=== PATIENT | female | born 1945 | race Caucasian/White ===

== ENCOUNTER 2024-01-28 08:33 | Outpatient (OUT) | payer MEDICARE, OTHER, SELFPAY ==
[2024-01-28 09:06] LABS: Basophils Percent Auto 0.4 % (0.2-2.0); Eosinophils Absolute Auto 0.1 10^3/uL (0.0-0.7); Eosinophils Percent Auto 1.3 % (0.9-7.0); Hematocrit 40.1 % (36.0-48.0); Hemoglobin 12.5 g/dL (12.0-16.0); Immature Granulocytes Abs Auto 0.02 10^3/uL (0.00-0.03); Immature Granulocytes Pct Auto 0.3 % (0.0-0.5); Lymphocytes Absolute Auto 1.9 10^3/uL (1.2-3.8); Lymphocytes Percent Auto 24.2 % (20.5-60.0); Mean Corpuscular HGB Conc 31.2 g/dL (29.9-35.2); Mean Corpuscular Hemoglobin 28.3 pg (26.7-34.0); Mean Corpuscular Volume 90.9 fL (81.0-99.0); Mean Platelet Volume 10.5 fL (9.5-13.5); Monocytes Absolute Auto 0.5 10^3/uL (0.3-0.8); Monocytes Percent Auto 6.8 % (1.7-12.0); Neutrophils Absolute Auto 5.3 10^3/uL (1.4-6.5); Platelet Count 258 10^3/uL (150-450); Red Blood Count 4.41 10^6/uL (4.20-5.40); Red Cell Distribution Width 14.1 % (11.0-15.0); White Blood Count 7.9 10^3/uL (4.0-11.0)
[2024-01-28 10:13] LABS: Alanine Aminotransferase 24 U/L (14-59); Albumin Level 3.7 g/dL (3.4-5.0); Alkaline Phosphatase 107 U/L (46-116); Anion Gap 10.3; Aspartate Amino Transferase 22 U/L (15-37); BUN Creatinine Ratio 23.5; Bilirubin Total 0.5 mg/dL (0.2-1.0); Calcium 9.9 mg/dL (8.5-10.1); Carbon Dioxide 29.9 mmol/L (21.0-32.0); Chloride 106 mmol/L (98-107); Chol HDL Ratio 3.2; Cholesterol 191 mg/dL (<=200); Estimated GFR (African America >60 (>=60); Estimated GFR (Non-African Ame >60 (>=60); Globulin 3.7 g/dL; Glucose 100 mg/dL (74-106); HDL Cholesterol 60 mg/dL (40-60); LDL Cholesterol Calculated 108.6 mg/dL; Potassium 4.2 mmol/L (3.5-5.1); Sodium 142 mmol/L (136-145); Total Protein 7.4 g/dL (6.4-8.2); Triglycerides 112 mg/dL (<=150); VLDL CHOLESTEROL 22.4 mg/dL
[2024-01-29 12:09] LABS: PTH, Intact 56 pg/mL (15-65)
== END 2024-01-28 08:34 | disposition home or self-care (01) ==
LOC: LAB 08:33
PROVIDERS: PCP Family Medicine; Visit Provider Family Medicine
DX: E83.52 Hypercalcemia (principal); I10 Essential (primary) hypertension
CPT/HCPCS: 36415; 80053; 80061; 83970; 84443; 85025

== ENCOUNTER 2024-02-02 08:15 | Outpatient (OUT) | payer MEDICARE, OTHER, SELFPAY ==
--- NOTE | 2024-02-02 08:17 | MM_ITS ---
Patient Name: ROYA CARVAJAL MR#: [id number] : 1945 Exam Date: 02/02/2024 Ordering Doctor: DR Jeannette Dumont M.D. RADIOLOGY REPORT PROCEDURE: MM TOMOSYNTHESIS SCREENING BI COMPARISON: MG MAMM SCREEN DARRIUS W CAD, 04/05/2020. MG MAMM SCREEN DARRIUS W CAD, 01/31/2019. INDICATIONS: Screening Calculator Name NCI Breast Cancer Risk Assessment Tool 5 Year Breast Cancer Risk 3.20% Lifetime Breast Cancer Risk 6.20% Personal Breast Cancer No Personal Ovarian Cancer No Treatments None Family Cancers Daughter with breast cancer at age 42; Sister with colon cancer at age 67. LOCATION: [facility] BREAST COMPOSITION: There are scattered areas of fibroglandular density. FINDINGS: DIAGNOSTIC CATEGORY 2--BENIGN FINDING. NO CHANGE FROM COMPARISON. Scattered benign-appearing calcifications are present. Scattered benign-appearing lymph nodes are present. RIGHT BREAST: No significant suspicious finding. LEFT BREAST: No significant suspicious finding. RECOMMENDATIONS: ROUTINE MAMMOGRAM AND CLINICAL EVALUATION IN 12 MONTHS. PLEASE NOTE: A NORMAL MAMMOGRAM DOES NOT EXCLUDE THE POSSIBILITY OF BREAST CANCER. A CLINICALLY SUSPICIOUS PALPABLE LUMP SHOULD BE BIOPSIED. Dictated by: Zeferino Randall MD on 02/02/2024 at 10:55 Approved by: Zeferino Randall MD on 02/02/2024 at 10:56
--- OUTSIDE RECORDS SUMMARY | 2024-02-02 08:36 | XMS_ITS | CCD ---
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 of oral cephalosporins (eg. Cephalexin) in uncomplicated Urinary Tract Infections due to E. coli, K. pneumoniae, and P. mirabilis Cefepime NOT REPORTEDCeftriaxone <=1 SUSCEPTIBLECiprofloxacin >=4 RESISTANTErtapenem NOT REPORTEDESBL NEGATIVEGentamicin <=1 SUSCEPTIBLEMeropenem NOT REPORTEDNitrofurantoin <=16 SUSCEPTIBLETigecycline NOT REPORTEDTobramycin <=1 SUSCEPTIBLETrimethoprim/Sulf a <=20 SUSCEPTIBLEPiperacillin/Tazo bactam <=4 SUSCEPTIBLE Normal [facility] Comment on above: Performed By: #### C GIOVANNI, BMP ####[employer] [place], [place] [id number] Discharge Summaryon 06-09-20 17 HIM IP Note OR Copra Sampler Normal [facility] UA w/Reflex Cultureon 2016 Comment Culture ordered base d on defined criteria. Normal [facility] Comment on above: Result Comment: [employer] [address] [place], [place] [id number] ([phone] Performed By: #### C GIOVANNI, BMP ####[employer] [address] [place] [address] Acetaminophen mass conc Negative Normal NEG [facility] Comment on above: Performed By: #### C BC, BMP ####[facility] [address] [place] [address] Bilirubin (direct) Negative Normal NEG [facility] Comment on above: Performed By: #### C BC, BMP ####[facility] [address] [address] Hemoglobin mass conc (Bld) LARGE Abnormal NEG [facility] Comment on above: Performed By: #### C BC, BMP ####[address] [address] Nitrite,Ur Negative Normal NEG [facility] Comment on above: Performed By: #### C BC, BMP ####[address] [address] Turbidity CLOUDY Abnormal CLEAR [facility] Comment on above: Performed By: #### C BC, BMP ####[facility] [address] [address] Urine, color RED Abnormal YEL [facility] Comment on above: Result Comment: INTE RPRET WITH CAUTION DUE TO INTENSE COLOR OF URINE. Performed By: #### C BC, BMP ####[facility] [address] [place] [address] Urine, glucose presence Negative Normal NEG [facility] Comment on above: Performed By: #### C BC, BMP ####[address] [address] Urine, leukocyte esterase presence LARGE Abnormal NEG [facility] Comment on above: Performed By: #### C BC, BMP ####[address] [address] Urine, pH [pH] High 5.0-8.0 [facility] Comment on above: Performed By: #### C BC, BMP ####[address] [address] Urine, protein presence 2+ Abnormal NEG [facility] Comment on above: Performed By: #### C BC, BMP ####[address] [address] Urine, specific gravity 1.007 Normal 1.005-1.030 [facility] Comment on above: Performed By: #### C BC, BMP ####[address] [address] Urobilinogen,Ur Normal Normal NORM [facility] Comment on above: Performed By: #### C BC, BMP ####[address] [address] Urinalysis,Microon 7 ----- Normal [facility] Comment on above: Performed By: #### C BC, BMP ####[address] [address] Urine WBC's 10 TO 20 Normal 0-5 [facility] Comment on above: Performed By: #### C BC, BMP ####[address] [address] Urine, bacteria in sediment FEW Abnormal NONE [facility] Comment on above: Result Comment: [address] [address] Performed By: #### C BC, BMP ####[address] [address] Urine, epithelial cells in sediment 2 TO 5 Normal 0-5 [facility] Comment on above: Performed By: #### C BC, BMP ####[address] [place] [address] Urine, erythrocytes 20 TO 50 Normal 0-2 [facility] Comment on above: Performed By: #### C BC, BMP ####[facility] [address] [place] [address] Epithelial, Renal NOT REPORTED Normal 0 [facility] Comment on above: Performed By: #### C BC, BMP ####[facility] [address] [place] [address] Mucus Strands NOT REPORTED Normal NONE [facility] Comment on above: Performed By: #### C BC, BMP ####[facility] [address] [address] Other Observations NOT REPORTED Normal NREQ [facility] Comment on above: Performed By: #### C BC, BMP ####[address] [address] Trichomonas NOT REPORTED Normal NONE [facility] Comment on above: Performed By: #### C BC, BMP ####[facility] [address] [place] [address] Urine, amorphous sediment presence in sediment NOT REPORTED Normal NONE [facility] Comment on above: Performed By: #### C BC, BMP ####[facility] [address] [place] [address] Urine, casts in sediment NOT REPORTED Normal 0-2 [facility] Comment on above: Performed By: #### C BC, BMP ####[facility] [address]zynwp[address]78 [place] [address] Urine, crystals in sediment NOT REPORTED Normal NONE [facility] Comment on above: Performed By: #### C BC, BMP ####[facility] [address] [place] [address] Urine, yeast presence in sediment NOT REPORTED Normal NONE [facility] Comment on above: Performed By: #### C BC, BMP ####[facility]ighVetCentricCychkirzsusy[address]209 [place] [address] Basic Metabolic Profon 06-06 (cont.) Normal [facility] Comment on above: Result Comment: Aver age GFR for 70 or more years old: 75 mL/min/1.73sq mChronic Kidney Disease: <60 mL/min/1.73sq mKidney failure: <15 mL/min/1.73sq meGFR calculated using average adult body mass. Additional eGFR calculator available at:http://www.[email or web address]/multiple_crcl_[email or web address] [place] [address] Performed By: #### C BC, BMP ####[address] [address] Anion gap 11 mmol/L Normal 9-17 [facility] Comment on above: Performed By: #### C BC, BMP ####[facility]ighVetCentricPcyuqrujioqb4950 [place] [address] Calcium 8.8 mg/dL Normal 8.6-10.4 [facility] Comment on above: Performed By: #### C BC, BMP ####[address] [address] Chloride 102 mmol/L Normal 98-107 [facility] Comment on above: Performed By: #### C BC, BMP ####[facility]ighVetCentricXosbboiguxpo1393 [place] [address] CO2 22 mmol/L Normal 20-31 [facility] Comment on above: Performed By: #### C BC, BMP ####[facility]ighVetCentricIefhsgkfhjrg2426 [place] [address] Creatinine 0.38 mg/dL Low 0.50-0.90 [facility] Comment on above: Performed By: #### C BC, BMP ####[facility] [address] [place] [address] eGFR (non-black) mL/min/{1.73_m2} Normal >60 [facility] Comment on above: Performed By: #### C BC, BMP ####[facility] [address] [place] [address] Glucose mass conc 161 mg/dL High 70-99 [facility] Comment on above: Performed By: #### C BC, BMP ####[facility] [address]dx[address] [place] [address] Potassium molar conc 3.9 mmol/L Normal 3.7-5.3 [facility] Comment on above: Performed By: #### C BC, BMP ####[facility] [place] [address] Sodium 135 mmol/L Normal 135-144 [facility] Comment on above: Performed By: #### C BC, BMP ####[facility] [address] [place] [address] Urea nitrogen 13 mg/dL Normal 8- [facility] Comment on above: Performed By: #### C BC, BMP ####[facility] [address] [place] [address] BUN/CRE Ratio NOT REPORTED Normal 9- [facility] Comment on above: Performed By: #### C BC, BMP ####[facility] [address]rbb[address] [place] [address] Staging: NOT REPORTED Normal [facility] Comment on above: Performed By: #### C BC, BMP ####[facility] [address] [place] [address] CBCon 06-06-2017 Erythrocyte distribution width Auto Ratio (RBC) 14.4 % Normal 12.5-15.4 [facility] Comment on above: Performed By: #### C BC, BMP ####[facility] [place] [address] Erythrocytes (RBC) 4.18 10*6/uL Normal 4.0-5.2 [facility] Comment on above: Performed By: #### C BC, BMP ####[facility] [place] [address] Hematocrit (HCT) 35.3 % Low 36-46 [facility] Comment on above: Performed By: #### C BC, BMP ####[address] [address] Hemoglobin mass conc (Bld) 11.8 g/dL Low 12.0-16.0 [facility] Comment on above: Performed By: #### C BC, BMP ####[address] [address] MCH 28.2 pg Normal 26-34 [facility] Comment on above: Performed By: #### C BC, BMP ####[address] [address] MCHC mass conc (RBC) 33.3 g/dL Normal 31-37 [facility] Comment on above: Performed By: #### C BC, BMP ####[address] [address] MCV 84.7 fL Normal 80-100 [facility] Comment on above: Performed By: #### C BC, BMP ####[facility] [place] [address] Platelet mean volume (PMV) 9.2 fL Normal 6.0-12.0 [facility] Comment on above: Result Comment: [address] [address] Performed By: #### C BC, BMP ####[facility] [address] [place] [address] Platelets 198 10*3/uL Normal 140-450 [facility] Comment on above: Performed By: #### C GIOVANNI, BMP ####[employer] [address] [place] [address] WBC (Leukocytes) 12.6 10*3/uL High 3.5-11.0 [facility] Comment on above: Performed By: #### C GIOVANNI, BMP ####[facility] [address]Zx[address] [place] [address] CTA NECK W CONTRASTon 2016 CTA NECK W CONTRAST EXAMINATION:CTA OF THE NECK, 06/04/2017 11:52 amTECHNIQUE:CTA of the neck was performed with the administration of intravenouscontrast. Multiplanar reformatted images are provided for review. MIP imagesare provided for review. Stenosis of the internal carotid arteries measuredusing NASCET criteria. Dose modulation, iterative reconstruction, and/orweight based adjustment of the mA/kV was utilized to reduce the radiationdose to as low as reasonably achievable.COMPARISON:NoneHI STORY:ORDERING SYSTEM PROVIDED HISTORY: C2 vertebral body fxFINDINGS:AORTIC ARCH/GREAT VESSELS: There is a normal branch pattern of the aorticarch. No significant stenosis is seen of the innominate artery or subclavianarteries.CAROTID ARTERIES: The common carotid arteries are normal in appearancewithout evidence of a flow limiting stenosis.Small amount of calcified and noncalcified atherosclerotic plaque is noted ofthe right carotid bifurcation and proximal right internal carotid artery.There is mild, less than 50%, stenosis of the right internal carotid arteryby NASCET criteria.Small amount of noncalcified atherosclerotic plaque is noted of the leftcarotid bifurcation and proximal left internal carotid artery. There ismild, less than 50%, stenosis of the left internal carotid artery by NASCETcriteria. No dissection or arterial injury is seen.VERTEBRAL ARTERIES: The vertebral arteries both arise from the subclavianarteries and are normal in caliber without evidence of flow limiting stenosisor dissection.SOFT TISSUES: The lung apices are clear. No cervical or superiormediastinal lymphadenopathy. The visualized portion of the larynx andpharynx appear unremarkable. The parotid, submandibular and thyroid glandsdemonstrate no acute abnormality. There is skin thickening and soft tissuestranding of the fat in the left posterior lower neck.BONES: There is redemonstration of a type 2 odontoid fracture.IMPRESSION: No acute traumatic injury of the major cervical arteries.Redemonstration of a type 2 odontoid fracture.Interpreted by:LOI Ruthigned by:Marcel Siegel MD06/06/17Final result Normal [facility] CT ABDOMEN PELVIS W IV CONTR Willy 06-05-2017 CT ABDOMEN PELVIS W IV CONTRAST EXAMINATION:CT OF THE ABDOMEN AND PELVIS WITH CONTRAST 06/05/2017 8:31 amTECHNIQUE:CT of the abdomen and pelvis was performed with the administration ofintravenous contrast. Multiplanar reformatted images are provided for review.Dose modulation, iterative reconstruction, and/or weight based adjustment ofthe mA/kV was utilized to reduce the radiation dose to as low as reasonablyachievable.COMPARI SON:No priorsHISTORY:ORDERING SYSTEM PROVIDED HISTORY: evalTECHNOLOGIST PROVIDED HISTORY:Additional Contrast?->NonePer Epic:Trauma with type 2 dens fracture. Some reproducible chest pain andnausea with associated emesis.FINDINGS:Lower Chest: Bilateral posterior basal small infiltrates representingsubsegmental atelectasis.Organs: The liver, spleen, pancreas, adrenal glands and gallbladder show nosignificant abnormalities. There is vicarious excretion of contrast into thegallbladder. 1.5 cm cyst lower pole right kidney. Additional bilateralsmaller hypodensities too small to characterize but favor cysts.GI/Bowel: There is limited evaluation due to absence of contrast. Smallsliding hiatal hernia. Small bowel loops grossly normal. The colon showsdiverticular. There is some asymmetric thickening of the entire length ofthe descending colon probably related to remote colitis.Pelvis: Urinary bladder catheterized with consequent air in the bladder. Nosuspicious pelvic mass. Calcifications in the uterine fundus likelycalcified fibroids.Peritoneum/Retroper itoneum: No free intraperitoneal fluid or air. Nosignificant lymphadenopathy.Bones/Soft Tissues: No acute bony abnormality. There is some infiltrationthe left flank subcutaneous fat overlying the iliac crests which could be dueto contusion.IMPRESSION: 1. Bibasilar subsegmental atelectasis.2. No acute visceral injury.3. Bilateral renal cysts.4. Left lower flank subcutaneous fat infiltration overlying the iliac crest,nonspecific, may be due to soft tissue contusion in the setting of trauma.5. Calcified uterine fibroids.Interpreted by:LOI Villarealigned by:Jamaal Nielsen MD06/05/17Final result Normal [facility] CT LUMBAR SPINE WO CONTRASTo n 06-05-2017 CT LUMBAR SPINE WO CONTRAST EXAMINATION:CT OF THE LUMBAR SPINE WITHOUT CONTRAST 06/05/2017TECHNIQUE:CT of the lumbar spine was performed without the administration ofintravenous contrast. Multiplanar reformatted images are provided for review.Dose modulation, iterative reconstruction, and/or weight based adjustment ofthe mA/kV was utilized to reduce the radiation dose to as low as reasonablyachievable.COMPARI SON:No priorsHISTORY:ORDERING SYSTEM PROVIDED HISTORY: evalTECHNOLOGIST PROVIDED HISTORY:Reason for exam:->evalFINDINGS:BONES/AL IGNMENT: There is normal alignment of the spine. The vertebral bodyheights are maintained. No osseous destructive lesion is seen.DEGENERATIVE CHANGES: Minor vertebral body osteophytosis. L3-L4 prominentdisc bulge.SOFT TISSUES/RETROPERITONEUM: No paraspinal mass is seen.IMPRESSION: 1. No acute abnormality of the lumbar spine.2. Minor degenerative changes with L3-L4 disc bulge.Interpreted by:LOI Villarealigned by:Jamaal Nielsen MD06/05/17Final result Normal [facility] CT THORACIC SPINE WO CONTRAS Ton 06-05-2017 CT THORACIC SPINE WO CONTRAST EXAMINATION:CT OF THE THORACIC SPINE WITHOUT CONTRAST 06/05/2017 8:31 am:TECHNIQUE:CT of the thoracic spine was performed without the administration ofintravenous contrast. Multiplanar reformatted images are provided for review.Dose modulation, iterative reconstruction, and/or weight based adjustment ofthe mA/kV was utilized to reduce the radiation dose to as low as reasonablyachievable.COMPARI SON:No priorsHISTORY:ORDERING SYSTEM PROVIDED HISTORY: evalPer Epic:Trauma with type 2 dens fracture. Some reproducible chest pain andnausea with associated emesis.FINDINGS:BONES/ALIGNM ENT: There is normal alignment of the spine. The vertebral bodyheights are maintained. No osseous destructive lesion is seen.DEGENERATIVE CHANGES: No gross spinal canal stenosis or bony neural foraminalnarrowing of the thoracic spine. Small vertebral body osteophytes in thelower thoracic spine.SOFT TISSUES: No paraspinal mass is seen. Visualized lungs show nopneumothorax. Subsegmental atelectasis posterior lung bases.IMPRESSION: No acute abnormality of the thoracic spine. Subsegmental atelectasis lungbases.Interpreted by:LOI Villarealigned by:Jamaal Nielsen MD06/05/17Final result Normal [facility] XR CERVICAL SPINE LIMITEDon 06-05-2017 XR CERVICAL SPINE LIMITED EXAMINATION:2 VIEWS OF THE CERVICAL SPINE06/05/2017 12:22 pmCOMPARISON:MRI cervical spine 06/04/2017HISTORY:ORDERING SYSTEM PROVIDED HISTORY: AP and Lateral, post halo harness placementTECHNOLOGIST PROVIDED HISTORY:Reason for exam:->AP and Lateral, post halo harness placementFINDINGS:Known type 2 dens fracture. Halo harness has been applied. There is slightanterior tilt off of the upper half of C2 similar to the MRI. Atlanto dentalarticulation appears intact on the radiograph.IMPRESSION: Interval placement of a halo harness forced C2 fracture. Slight anteriortilt of the superior fracture fragment. Appears stable compared to the priorMRI.Interpreted by:LOI Villarealigned by:Jamaal Nielsen MD06/05/17Final result Normal [facility] Basic Metabolic Profon 06-04 (cont.) Normal [facility] Comment on above: Result Comment: Aver age GFR for 70 or more years old: 75 mL/min/1.73sq mChronic Kidney Disease: <60 mL/min/1.73sq mKidney failure: <15 mL/min/1.73sq meGFR calculated using average adult body mass. Additional eGFR calculator available at:http://www.[email or web address]/multiple_[email or web address] Valley [address] [place], [place] [address] ([phone] Performed By: #### C BC, BMP ####[address] [place] [address] Anion gap 15 mmol/L Normal 9-17 [facility] Comment on above: Performed By: #### C BC, BMP ####[facility] [address] [place] [address] Calcium 9.4 mg/dL Normal 8.6-10.4 [facility] Comment on above: Performed By: #### C BC, BMP ####[facility] [address] [place] [address] Chloride 99 mmol/L Normal 98-107 [facility] Comment on above: Performed By: #### C BC, BMP ####[facility] [address] [place] [address] CO2 22 mmol/L Normal 20-31 [facility] Comment on above: Performed By: #### C GIOVANNI, BMP ####[facility] [address]fythap[address]78 [place] [address] Creatinine 0.62 mg/dL Normal 0.50-0.90 [facility] Comment on above: Performed By: #### C BC, BMP ####[facility] [address]ju[address] [place] [address] eGFR (non-black) mL/min/{1.73_m2} Normal >60 [facility] Comment on above: Performed By: #### C BC, BMP ####[facility] [address]bwnt[address] [place] [address] Glucose mass conc 149 mg/dL High 70-99 [facility] Comment on above: Performed By: #### C BC, BMP ####[facility] [address]owifrr[address] [place] [address] Potassium molar conc 4.3 mmol/L Normal 3.7-5.3 [facility] Comment on above: Performed By: #### C BC, BMP ####[address] [place] [address] Sodium 136 mmol/L Normal 135-144 [facility] Comment on above: Performed By: #### C BC, BMP ####[facility] [address]Uj[address]domlcnjef[address]256 [place] [address] Urea nitrogen 18 mg/dL Normal 8-23 [facility] Comment on above: Performed By: #### C BC, BMP ####[address] [place] [address] BUN/CRE Ratio NOT REPORTED Normal 9-20 [facility] Comment on above: Performed By: #### C GIOVANNI, BMP ####[facility] [address]ongCtx[address]zyairxpr1376 [place] [address] Staging: NOT REPORTED Normal [facility] Comment on above: Performed By: #### C GIOVANNI, BMP ####[facility] [address] [place] [address] CBCon 06-04-2017 Erythrocyte distribution width Auto Ratio (RBC) 15.3 % Normal 12.5-15.4 [facility] Comment on above: Performed By: #### C GIOVANNI, BMP ####[facility] [address]ongNejxetaqesfb2220 [place] [address] Erythrocytes (RBC) 4.69 10*6/uL Normal 4.0-5.2 [facility] Comment on above: Performed By: #### C BC, BMP ####[facility] [address]ongMqfbnumhjcpl1732 [place] [address] Hematocrit (HCT) 40.2 % Normal 36-46 [facility] Comment on above: Performed By: #### C BC, BMP ####[facility] [address]ongKucqwayzxzpz4476 [place] [address] Hemoglobin mass conc (Bld) 12.9 g/dL Normal 12.0-16.0 [facility] Comment on above: Performed By: #### C GIOVANNI, BMP ####[facility] [address]cp[address] [place] [address] MCH 27.6 pg Normal 26-34 [facility] Comment on above: Performed By: #### C BC, BMP ####[facility] [place] [address] MCHC mass conc (RBC) 32.2 g/dL Normal 31-37 [facility] Comment on above: Performed By: #### C GIOVANNI, BMP ####[facility] [place] [address] MCV 85.7 fL Normal 80-100 [facility] Comment on above: Performed By: #### C GIOVANNI, BMP ####[address] [address] Platelet mean volume (PMV) 8.1 fL Normal 6.0-12.0 [facility] Comment on above: Result Comment: [facility] [address] [place] [address] Performed By: #### C GIOVANNI, BMP ####[facility] [place] [address] Platelets 217 10*3/uL Normal 140-450 [facility] Comment on above: Performed By: #### C GIOVANNI, BMP ####[facility] [place] [address] WBC (Leukocytes) 13.7 10*3/uL High 3.5-11.0 [facility] Comment on above: Performed By: #### C GIOVANNI, BMP ####[facility] [place] [address] ED Noteon 06-04-2017 HIM IP Note OR Copra Sampler Normal [facility] HIM IP Note OR Copra Sampler Normal [facility] HIM IP Note OR Copra Sampler Normal [facility] HIM IP Note OR Copra Sampler Normal [facility] HIM IP Note OR Copra Sampler Normal [facility] HIM IP Note OR Copra Sampler Normal [facility] HIM IP Note OR Copra Sampler Normal [facility] ED Provider Noteon 7 HIM IP Note OR Copra Sampler Normal [facility] History and Physicalon 06-04 HIM IP Note OR Copra Sampler Normal [facility] MRI CERVICAL SPINE WO CONTRA STon 06-04-2017 MRI CERVICAL SPINE WO CONTRAST EXAMINATION:MRI OF THE CERVICAL SPINE WITHOUT CONTRAST 06/04/2017 1:40 amTECHNIQUE:Multiplanar multisequence MRI of the cervical spine was performed without theadministration of intravenous contrast.COMPARISON:None.HIS TORY:ORDERING SYSTEM PROVIDED HISTORY: C2 vertebral body fxFINDINGS:BONES/ALIGNMENT: There is normal alignment of the spine. The vertebral bodyheights are maintained. There is trace bone marrow edema along a C2 fractureline at the base of the dens (type 2) with no significant displacement.SPINAL CORD: No abnormal cord signal is seen.SOFT TISSUES: There is edema in the posterior ligamentous complex at theatlantoaxial articulation (C1/C2) with widening, and similarly although to alesser extent in the posterior ligamentous complex at C6-7 without widening.C2-C3: There is no significant disc protrusion, spinal canal stenosis orneural foraminal narrowing.C3-C4: There is no significant disc protrusion, spinal canal stenosis orneural foraminal narrowing.C4-C5: There is no significant disc protrusion, spinal canal stenosis orneural foraminal narrowing.C5-C6: There is no significant disc protrusion, spinal canal stenosis orneural foraminal narrowing.C6-C7: There is no significant disc protrusion, spinal canal stenosis orneural foraminal narrowing.C7-T1: There is no significant disc protrusion, spinal canal stenosis orneural foraminal narrowing.IMPRESSION: Type 2 dens fracture with posterior ligamentous complex injury at C1-2.Mild posterior ligamentous complex injury at C6-7.No evidence of cord injury.Interpreted by:LOI Carlosigned by:Jacob Garcia MD06/04/17Final result Normal [facility] MRSA, DNA, Nasalon 7 MRSA, DNA, Nasal NEGATIVE: MRSA DNA n ot detected by nucleic acid amplification. Normal [facility] Comment on above: Result Comment: Resu lts should be used as an adjunct to nosocomial control efforts to identify patients needing enhanced precautions.The test is not intended to identify patients with staphylococcal infections. Results should not be used to guide or monitor treatment for MRSA infections.[facility] [address] [place], [place] [id number] ([phone] Performed By: #### C BC, BMP ####[facility] [place] [address] Specimen Description .NASAL SWAB Normal [facility] Comment on above: Performed By: #### C BC, BMP ####[facility] [place] [address] Vital Signs Date Time Vital Sign Value Performing Clinician Facility 01-11-2023 09:30-0400 Body height 157.48 cm Jeannette Alves Other [facility] Other 01-11-2023 09:30-0400 Body mass index (BMI) [Ratio] 24.32 kg/m2 Jeannette Alves Other [facility] Other 01-11-2023 09:30-0400 Body weight 60.33 kg Jeannette Alves Other [facility] Other 01-11-2023 09:30-0400 Diastolic blood pressure 92 mm[Hg] Jeannette Alves Other [facility] Other 01-11-2023 09:30-0400 SaO2% (BldA) [Mass fraction] 99 % Jeannette Alves Other [facility] Other 01-11-2023 09:30-0400 Systolic blood pressure 152 mm[Hg] Jeannette Alves Other [facility] Other Encounters Encounter Date Encounter Type Care Provider Facility Start: 10-04-2023 End: 10-04-2023 ambulatory Jeannette Alves Other [facility] Other Start: 10-04-2023 Telephone encounter Jeannette Alves [facility] Start: 04-14-2023 End: 04-14-2023 ambulatory Omero Gunderson Other [facility] Other Start: 04-14-2023 Telephone encounter Omero Gunderson [facility] Start: 04-01-2023 End: 04-01-2023 ambulatory Jeannette Alves Other [facility] Other Start: 04-01-2023 Telephone encounter Jeannette Alves [facility] Start: 01-12-2023 End: 01-13-[address] JEANNETTE ALVES Facility:[facility] Start: 01-11-2023 End: 01-11-2023 ambulatory Jeannette Alves Other [facility] Other Start: 01-11-2023 Patient encounter procedure Jeannette Alves [facility] Start: 04-04-2022 End: 04-05-[address] WALDEMAR WILEY Facility:[facility] Start: 03-19-2022 End: 03-20-[address] WALDEMAR WILEY Facility:[facility] Start: 03-18-2022 End: 03-19-[address] JEANNETTE ALVES Facility:[facility] Start: 03-13-2022 End: 03-14-[address] WALDEMAR WILEY Facility:[facility] Start: 03-29-2020 Adult health examination Omero Gunderson Other [facility] Other Start: 06-04-2017 End: 06-09-2017 Evaluation and management of inpatient SHERYL NEGRON [facility] Procedures Date Procedure Procedure Detail Performing Clinician Start: 01-25-2019 Screening for malign ant neoplasm of colon Omero Gunderson Other Start: 01-25-2019 Screening mammography Bert Alves Other Start: 06-09-2017 PULSE OXIMETRY, CONTINUOUS SHERYL SPE Start: 06-09-2017 DISCHARGE PATIENT STEEV GEE Start: 06-09-2017 PULSE OXIMETRY, CONTINUOUS SHERYL Start: 06-09-2017 INITIATE OXYGEN THER APY PROTOCOL SHERYL Start: 06-09-2017 PULSE OXIMETRY, CONTINUOUS SHERYL SPE Start: 06-09-2017 PULSE OXIMETRY, CONTINUOUS SHERYL SPE Start: 06-09-2017 PULSE OXIMETRY, CONTINUOUS SHERYL Start: 06-08-2017 PULSE OXIMETRY, CONTINUOUS SHERYL Start: 06-08-2017 PULSE OXIMETRY, CONTINUOUS SHERYL Start: 06-08-2017 PULSE OXIMETRY, CONTINUOUS SHERYL Start: 06-08-2017 TELEMETRY MONITORING SUDHA RODRIGUEZ PRECIOUSALEXANDER Start: 06-08-2017 INITIATE OXYGEN THER APY PROTOCOL SHERYL GEE Start: 06-08-2017 PULSE OXIMETRY, CONTINUOUS SHERYL Start: 06-08-2017 PULSE OXIMETRY, CONTINUOUS SHERYL Start: 06-08-2017 PULSE OXIMETRY, CONTINUOUS SHERYL Start: 06-07-2017 PULSE OXIMETRY, CONTINUOUS SHERYL Start: 06-07-2017 Microscopic urinalysis SHERYL Start: 06-07-2017 PROTEIN, URINE SHERYL Start: 06-07-2017 UA W/REFLEX CULTURE LAW EMRE GEE Start: 06-07-2017 URINE CULTURE SHERYL Start: 06-07-2017 PULSE OXIMETRY, CONTINUOUS SHERYL Start: 06-07-2017 PULSE OXIMETRY, CONTINUOUS SHERYL Start: 06-07-2017 DME ORDER FOR (SPECI FY) OP SHERYL Start: 06-07-2017 INITIATE OXYGEN THER APY PROTOCOL SHERYL Start: 06-07-2017 PULSE OXIMETRY, CONTINUOUS SHERYL SPE Start: 06-07-2017 PULSE OXIMETRY, CONTINUOUS SHERYL Start: 06-07-2017 PULSE OXIMETRY, CONTINUOUS SHERYL Start: 06-06-2017 PULSE OXIMETRY, CONTINUOUS SHERYL SPE Start: 06-06-2017 PULSE OXIMETRY, CONTINUOUS SHERYL SPET Start: 06-06-2017 PULSE OXIMETRY, CONTINUOUS SHERYL SPET Start: 06-06-2017 BASIC METABOLIC PANEL L AWRENJONEL LANGALEXANDER Start: 06-06-2017 CBC SHERYL KEENAN Start: 06-06-2017 MISCELLANEOUS NURSIN G CARE ORDER (SPECIFY) SHERYL NEGRON Start: 06-06-2017 INITIATE OXYGEN THER APY PROTOCOL SHERYL NEGRON Start: 06-06-2017 PULSE OXIMETRY, CONTINUOUS SHERYL NEGRON Start: 06-06-2017 DIETARY NUTRITION SUPPLEMENTS SHERYL NEGRON Start: 06-06-2017 PULSE OXIMETRY, CONTINUOUS SHERYL NEGRON Start: 06-06-2017 PULSE OXIMETRY, CONTINUOUS SHERYL NEGRON Start: 06-05-2017 PULSE OXIMETRY, CONTINUOUS SHERYL NEGRON Start: 06-05-2017 PIN CARE SHERYL KEENAN Start: 06-05-2017 TRANSFER PATIENT VAHID REMY JAMIL Start: 06-05-2017 DIET GENERAL SHERYL KEENAN Start: 06-05-2017 PULSE OXIMETRY, CONTINUOUS SHERYL NEGRON Start: 06-05-2017 Radex spine cervical 2 or 3 views SHERYL NEGRON Start: 06-05-2017 PULSE OXIMETRY, CONTINUOUS SHERYL NEGRON Start: 06-05-2017 Ct lumbar spine w/o contrast material SHERYL NEGRON Start: 06-05-2017 Ct thoracic spine w/ o contrast material SHERYL NEGRON Start: 06-05-2017 Ct abdomen & pelvis w/contrast material SHERYL NEGRON Start: 06-05-2017 INITIATE OXYGEN THER APY PROTOCOL SHERYL NEGRON Start: 06-05-2017 PULSE OXIMETRY, CONTINUOUS SHERYL NEGRON Start: 06-05-2017 POC GLUCOSE FINGERSTICK SHERYL NEGRON Start: 06-05-2017 PULSE OXIMETRY, CONTINUOUS SHERYL NEGRON Start: 06-05-2017 PULSE OXIMETRY, CONTINUOUS SHERYL NEGRON Start: 06-04-2017 ELEVATE HEELS OFF OF BED SHERYL NEGRON Start: 06-04-2017 HEAD OF BED 60 DEGRE ES OR LESS SHERYL NEGRON Start: 06-04-2017 NURSING COMMUNICATION L LUC NEGRON Start: 06-04-2017 TURN PATIENT SHERYL KEENAN Start: 06-04-2017 PULSE OXIMETRY, CONTINUOUS SHERYL NEGRON Start: 06-04-2017 PULSE OXIMETRY, CONTINUOUS SHERYL NEGRON Start: 06-04-2017 PULSE OXIMETRY, CONTINUOUS SHERYL NEGRON Start: 06-04-2017 Ct angiography neck w/contrast/noncontrast SHERYL NEGRON Start: 06-04-2017 INITIATE OXYGEN THER APY PROTOCOL SHERYL GEEIsabelALEXANDER Start: 06-04-2017 PULSE OXIMETRY, CONTINUOUS SHERYL GEEIsabelALEXANDER Start: 06-04-2017 BASIC METABOLIC PANEL L LUC NEGRON Start: 06-04-2017 CBC SHERYL KEENAN Start: 06-04-2017 PULSE OXIMETRY, CONTINUOUS SHERYL NEGRON Start: 06-04-2017 MRSA DNA PROBE, NASAL L LUC GEEIsabelALEXANDER Start: 06-04-2017 IP CONSULT TO PALLIA TIVE CARE SHERYL PRECIOUSALEXANDER Start: 06-04-2017 FULL CODE SHERYL KEENAN Start: 06-04-2017 INITIATE OXYGEN THER APY PROTOCOL SHERYL GEEIsabelALEXANDER Start: 06-04-2017 INTAKE AND OUTPUT STEVE GEEIsabelALEXANDER Start: 06-04-2017 NEURO CHECKS SHERYL KEENAN Start: 06-04-2017 NOTIFY PHYSICIAN (SPECIFY) SHERYL LANGALEXANDER Start: 06-04-2017 OT EVAL AND TREAT STEVE NEGRON Start: 06-04-2017 PLACE INTERMITTENT PNEUMATIC COMPRESSION DEVICE SHERYL NEGRON Start: 06-04-2017 PT EVAL AND TREAT STEVE NEGRON Start: 06-04-2017 PULSE OXIMETRY, CONTINUOUS SHERYL GEEIsabelALEXANDER Start: 06-04-2017 REASON FOR NO CHEMIC AL VTE PROPHYLAXIS SHERYL LANGALEXANDER Start: 06-04-2017 TEAM SUPERVISOR EVAL AND TREAT NEIDA NEGRON Start: 06-04-2017 VITAL SIGNS SHERYL KEENAN Start: 06-04-2017 Mri spinal canal cer vical w/o contrast matrl SHERYL NEGRON Start: 06-04-2017 PATIENT STATUS (FROM ED OR OR/PROCEDURAL) SHERYL NEGRON Start: 06-04-2017 IP CONSULT TO NEUROSURGERY SHERYL NEGRON Start: 06-04-2017 IP CONSULT TO TRAUMA SURGERY SHERYL NEGRON Start: 06-01-2013 General examination of patient Omero Gunderson Other Screening for malign ant neoplasm of breast Omero Gunderson Other Immunizations Immunization Date Immunization Notes Care Provider Blaire murray 11-09-2020 COVID-19 Vaccine Pfi zer - Documentation Purposes Only Jeannette Alves Other [facility] Other 10-12-2020 COVID-19 Vaccine Pfi zer - Documentation Purposes Only Jeannette Alves Other [facility] Other 07-19-2020 influenza virus vacc ine, split virus (incl. purified surface antigen) Omero Gunderson Other [facility] Other 07-13-2018 influenza virus vacc ine, split virus (incl. purified surface antigen) Omero Neptali Other [facility] Other 07-22-2015 pneumococcal conjuga te vaccine, 13 valent Omero Gunderson Other [facility] Other 06-07-2014 tetanus and diphther ia toxoids, adsorbed, preservative free, for adult use (5 Lf of tetanus toxoid and 2 Lf of diphtheria toxoid) Omero Gunderson Other [facility] Other 06-01-2013 meningococcal oligosaccharide (groups A, C, Y and W-135) diphtheria toxoid conjugate vaccine (MCV4O) Omero Neptali Other [facility] Other 06-01-2013 pneumococcal Conjuga te, unspecified formulation; Translations: [Need for prophylactic vaccination against Streptococcus pneumoniae (pneumococcus)] Jeannette Alves Other [facility] Other 06-01-2013 pneumococcal polysaccharide vaccine, 23 valent Omero Gunderson Other [facility] Other 06-24-2012 tetanus and diphther ia toxoids, adsorbed, preservative free, for adult use (5 Lf of tetanus toxoid and 2 Lf of diphtheria toxoid) Omero Gunderson Other [facility] Other Payers Date Payer Category Payer Unknown [id number] 1958 Medicare [id number] 2.1 [id number] 1958 Unknown [id number] 1945 Unknown [id number] 2.16.84 [id number] 1945 Unknown [id number] 2.16.84 [id number] 1945 Unknown [id number] 2.16.84 [id number] 1945 Unknown [id number] 2.16.84 [id number] 1945 Unknown [id number] 2.16.84 [id number] Unknown [id number] Social History Date Type Detail Facility Unknown if ever smoked [facility] Other Sex Assigned At Sex Assigned At Bir th [facility] Other Evaluation note 04-14-2023 Note Date & Type Note Facility 04-14-2023 Evaluation note Encounter Date Diagnosis Assessment Notes Apr, Essential hypertension (ICD-10 - I10) [facility] Other Evaluation note 01-11-2023 Note Date & Type Note Facility 01-11-2023 Evaluation note Encounter Date Diagnosis Assessment Notes January, Medicare annual wellness visit, subsequent (ICD-10 - Z00.00) Personalized health advice was given to the beneficiary including a written plan for screenings discussed and provided. Advanced care planning reviewed and/or information given as requested. Additional counseling was provided here today in regards to, [ ]. The above visit was performed by [ ], under direct supervision of [ ]. Document reviewed and amended by provider signed below. January, Essential hypertension (ICD-10 - I10) States home bps are 118/70 - and feels weak at times. Presently taking HCTZ 1/2 daily. Suggested she hold it completely. Will recheck EKG and labs. She is debating if she needs to see [facility] Cardio on a yearly basis. [facility] Other Evaluation note Note Date & Type Note Facility Evaluation note No Information [facility] [employer] Other History general Narrative - Reported Note Date & Type Note Facility History general Narrative - Reported Type Medical History Essential hypertension Medical History Left lumbar pain Medical History Hypercalcemia Surgical History BTL Hospitalization History SEE SURGICAL HX [facility] [employer] Other Summary Purpose Family History No Family History Records FoundNo Family History Records Found Advance Directives No Advanced Directives Records FoundNo Advanced Directives Records Found Additional Source Comments INFORMATION SOURCE (unrecogn ized section and content) DATE CREATED AUTHOR 03/09/2018 [facility] DATE CREATED AUTHOR AUTHOR'S ORGANIZ ATION 01/20/2023 [facility] REASON FOR VISIT (unrecogniz ed section and content) WellnessrefillRefillrefill FOR RECORDS PERTAINING TO PATIENTS WHO ARE OR HAVE BEEN ENROLLED IN A CHEMICAL DEPENDENCY/SUBSTANCEABUSE PROGRAM, SOME INFORMATION MAY BE OMITTED. This clinical summary was aggregated from multiple sources. Caution should be exercised in using it in the provision of clinical care. This summary normalizes information from multiple sources, and as a consequence, information in this document may materially change the coding, format and clinical context of patient data. In addition, data may be omitted in some cases. CLINICAL DECISIONS SHOULD BE BASED ON THE PRIMARY CLINICAL RECORDS. [employer] provides no warranty or guarantee of the accuracy or completeness of information in this document.
== END 2024-02-02 08:16 | disposition home or self-care (01) ==
LOC: MAMMO 08:15
PROVIDERS: PCP Family Medicine; Visit Provider Family Medicine
DX: Z12.31 Encounter for screening mammogram for malignant neoplasm of breast (principal); Z80.3 Family history of malignant neoplasm of breast; Z80.0 Family history of malignant neoplasm of digestive organs
CPT/HCPCS: 77063; 77067

== ENCOUNTER 2025-01-29 09:09 | Outpatient (OUT) | payer MEDICARE, OTHER, SELFPAY ==
--- OUTSIDE RECORDS SUMMARY | 2025-01-29 09:31 | XMS_ITS | CCD ---
Author Organization [facility] Care Team Providers Care Pulmonologist/Intensivist Name Role Phone MARLENIsabelSHERYL MUNOZ Unavailable Unavailable [...] physicia Propensity to adverse reactions 3 Comment:Done [employer] Other (2 sources) Allergies Reconciled Propensity to adverse reactions Unknown [employer] Other Medications Current Medications Medication Drug Class(es) [...] 01-12-2023 BASO # 0.0 103/ul Normal 0.0-0.1 [facility] Comment on above: Performed By: #### C BC #### [facility] [address] [address] [address] Silvestre Caicedo Basophils/100 WBC (Bld) 0.3 % Normal 0.2-2.0 [facility] Comment on above: Performed By: #### C BC #### [facility] [address] [place] [address] Dr. Silvestre Caicedo EO # 0.1 103/ul Normal 0.0-0.7 [facility] Comment on above: Performed By: #### C BC #### [facility] [address] [place] [address] Dr. Silvestre Caicedo Eosinophils/100 WBC (Bld) 1.3 % Normal 0.9-7.0 [facility] Comment on above: Performed By: #### C BC #### [facility] [address] [place] [address] Dr. Silvestre Caicedo Erythrocyte distribution width (RBC) [Ratio] 13.3 % Normal 11.0-15.0 [facility] Comment on above: Performed By: #### C BC #### [facility] [address] [place] [address] Dr. Silvestre Caicedo Hematocrit (Bld) [Volume fraction] 39.6 % Normal 36.0-48.0 [facility] Comment on above: Performed By: #### C BC #### [facility] [address] [place] [address] Dr. Silvestre Caicedo Hemoglobin (Bld) [Mass/Vol] 12.6 g/dL Normal 12.0-16.0 [facility] Comment on above: Performed By: #### C BC #### [facility] [address] [place] [address] Dr. Silvestre Caicedo IG # 0.02 10e3/ul Normal 0.00-0.03 [facility] Comment on above: Performed By: #### C BC #### [facility] [address] [place] [address] Dr. Silvestre Caicedo IG % 0.3 % Normal 0.0-0.5 [facility] Comment on above: Performed By: #### C BC #### [facility] [address] [place] [address] Dr. Silvestre Caicedo LYMPH # 2.0 103/ul Normal 1.2-3.8 [facility] Comment on above: Performed By: #### C BC #### [facility] [address] [place] [address] Dr. Silvestre Caicedo Lymphocytes/100 WBC (Bld) 29.3 % Normal 20.5-60.0 [facility] Comment on above: Performed By: #### C BC #### [facility] [address] [place] [address] Dr. Silvestre Caicedo MANUAL DIFF REQ NO Normal [facility] Comment on above: Performed By: #### C BC #### [facility] [address] [place] [address] Dr. Silvestre Caicedo MCH (RBC) [Entitic mass] 28.7 pg Normal 26.7-34.0 [facility] Comment on above: Performed By: #### C BC #### [facility] [address] [place] [address] Dr. Silvestre Caicedo MCHC (RBC) [Mass/Vol] 31.8 g/dL Normal 29.9-35.2 [facility] Comment on above: Performed By: #### C BC #### [facility] [address] [place] [address] Dr. Silvestre Caicedo MCV (RBC) [Entitic vol] 90.2 fL Normal 81.0-99.0 [facility] Comment on above: Performed By: #### C BC #### [facility] [address] [place] [address] Dr. Silvestre Caicedo MONO # 0.5 103/ul Normal 0.3-0.8 [facility] Comment on above: Performed By: #### C BC #### [facility] [address] [place] [address] Dr. Silvestre Caicedo Monocytes/100 WBC (Bld) 7.5 % Normal 1.7-12.0 [facility] Comment on above: Performed By: #### C BC #### [facility] [address] [place] [address] Dr. Silvestre Caicedo NEUT # 4.2 103/ul Normal 1.4-6.5 [facility] Comment on above: Performed By: #### C BC #### [facility] [address] [place] [address] Dr. Silvestre Caicedo Neutrophils/100 WBC (Bld) 61.3 % Normal 43.0-75.0 [facility] Comment on above: Performed By: #### C BC #### [facility] [address] [place] [address] Dr. Silvestre Caicedo Platelet mean volume (Bld) [Entitic vol] 9.8 fL Normal 9.5-13.5 [facility] Comment on above: Performed By: #### C BC #### [facility] [address] [place] [address] Dr. Silvestre Caicedo PLT 257 103/ul Normal 150-450 [facility] Comment on above: Performed By: #### C BC #### [facility] [address] [place] [address] Dr. Silvestre Caicedo RBC 4.39 106/ul Normal 4.20-5.40 [facility] Comment on above: Performed By: #### C BC #### [facility] [address] [place] [address] Dr. Silvestre Caicedo WBC 6.8 103/ul Normal 4.0-11.0 [facility] Comment on above: Performed By: #### C BC #### [facility] [address] [place] [address] Dr. Silvestre Caicedo PROF 14(COMP METB)on 023 Albumin [Mass/Vol] 3.8 g/dL Normal 3.4-5.0 [facility] Comment on above: Performed By: #### C MP #### [facility] [address] [place] [address] Dr. Silvestre Caicedo Albumin/Globulin [Mass ratio] 1.1 {ratio} Normal [facility] Comment on above: Performed By: #### C MP #### [facility] [address] [place] [address] Dr. Silvestre Caicedo ALP [Catalytic activity/Vol] 104 U/L Normal 46-116 [facility] Comment on above: Performed By: #### C MP #### [facility] [address] [address] [address] Silvestre Caicedo ALT [Catalytic activity/Vol] 24 U/L Normal 14-59 [facility] Comment on above: Performed By: #### C MP #### [facility] [address] [address] [address] Silvestre Caicedo Anion gap [Moles/Vol] 8.7 mmol/L Normal [facility] Comment on above: Performed By: #### C MP #### [facility] [address] [address] [address] Silvestre Caicedo AST [Catalytic activity/Vol] 26 U/L Normal 15-37 [facility] Comment on above: Performed By: #### C MP #### [facility] [address] [place] [address] Dr. Silvestre Caicedo Bilirubin [Mass/Vol] 0.5 mg/dL Normal 0.2-1.0 [facility] Comment on above: Performed By: #### C MP #### [facility] [address] [place] [address] Dr. Silvestre Caicedo Calcium [Mass/Vol] 10.0 mg/dL Normal 8.5-10.1 [facility] Comment on above: Performed By: #### C MP #### [facility] [address] [place] [address] Dr. Silvestre Caicedo Chloride [Moles/Vol] 103 mmol/L Normal 98-107 [facility] Comment on above: Performed By: #### C MP #### [facility] [address] [place] [address] Dr. Silvestre Caicedo CO2 [Moles/Vol] 31.3 mmol/L Normal 21.0-32.0 [facility] Comment on above: Performed By: #### C MP #### [facility] [address] [place] [address] Dr. Silvestre Caicedo Creatinine [Mass/Vol] 0.83 mg/dL Normal 0.55-1.02 [facility] Comment on above: Performed By: #### C MP #### [facility] [address] [address] [address] Silvestre Caicedo EGFR-AF SAMOAN >60 Normal >=60 [facility] Comment on above: Performed By: #### C MP #### [facility] [address] [address] [address] Silvestre Caicedo EGFR-NON AF SAMOAN >60 Normal >=60 [facility] Comment on above: Performed By: #### C MP #### [facility] [address] [address] [address] Silvestre Caicedo Globulin (S) [Mass/Vol] 3.4 g/dL Normal [facility] Comment on above: Performed By: #### C MP #### [facility] [address] [place] [address] Dr. Slivestre Caicedo Glucose [Mass/Vol] 114 mg/dL Critically high 74-106 [facility] Comment on above: Performed By: #### C MP #### [facility] [address] [place] [address] Dr. Silvestre Caicedo Potassium [Moles/Vol] 4.0 mmol/L Normal 3.5-5.1 [facility] Comment on above: Performed By: #### C MP #### [facility] [address] [place] [address] Dr. Silvestre Caicedo Protein [Mass/Vol] 7.2 g/dL Normal 6.4-8.2 [facility] Comment on above: Performed By: #### C MP #### [facility] [address] [place] [address] Dr. Silvestre Caicedo Sodium [Moles/Vol] 139 mmol/L Normal 136-145 [facility] Comment on above: Performed By: #### C MP #### [facility] [address] [address] [address] Silvestre Caicedo Urea nitrogen [Mass/Vol] 11.0 mg/dL Normal 7.0-18.0 [facility] Comment on above: Performed By: #### C MP #### [facility] [address] [address] [address] Silvestre Caicedo Urea nitrogen/Creatini ne [Mass ratio] 13.3 mg/mg Normal [facility] Comment on above: Performed By: #### C MP #### [facility] [address] [address] [address] Silvestre Caicedo LIPID PROFILEon 04-04-2022 CHOL-HDL RATIO NORM SEE BELOW Normal [facility] Comment on above: Result Comment: 3.3 - 4.4 LOW RISK 4.4 - 7.1 AVERAGE RISK 7.1 - 11.0 MODERATE RISK >11.0 HIGH RISK Performed By: #### L IPID #### [facility] [address] [address] [address] Silvestre Caicedo Cholesterol [Mass/Vol] 171 mg/dL Normal <=200 [facility] Comment on above: Performed By: #### L IPID #### [facility] [address] [place] [address] Dr. Silvestre Caicedo Cholesterol in HDL [Mass/Vol] 59 mg/dL Normal 40-60 [facility] Comment on above: Performed By: #### L IPID #### [facility] [address] [address] [address] Silvestre Caicedo Cholesterol in LDL [Mass/Vol] 98.6 mg/dL Normal [facility] Comment on above: Performed By: #### L IPID #### [facility] [address] [place] [address] Dr. Silvestre Caicedo Cholesterol.total /Cholesterol in HDL [Mass ratio] 2.9 {ratio} Normal [facility] Comment on above: Performed By: #### L IPID #### [facility] [address] [address] [address] Silvestre Caicedo HDL NORMAL > or = 60 mg/dl - LO W CARDIOVASCULAR RISK <40 mg/dl - HIGH CARDIOVASCULAR RISK Normal [facility] Comment on above: Performed By: #### L IPID #### [facility] [address] [place] [address] Dr. Silvestre Caicedo LDL CALC NORMAL SEE BELOW Normal [facility] Comment on above: Result Comment: <100 mg/dl OPTIMAL 100 - 129 mg/dl NEAR OR ABOVE OPTIMAL 130 - 159 mg/dl BORDERLINE HIGH 160 - 189 mg/dl HIGH >190 mg/dl VERY HIGH Performed By: #### L IPID #### [facility] [address] [address] [address] Silvestre Caicedo Triglyceride [Mass/Vol] 67 mg/dL Normal <=150 [facility] Comment on above: Performed By: #### L IPID #### [facility] [address] [address] [address] Silvestre Caicedo VLDL CALC 13.4 mg/dL Normal [facility] Comment on above: Performed By: #### L IPID #### [facility] [address] [address] [address] Silvestre Caicedo NM STRESS/REST MULTIon 03-19 NM STRESS/REST MULTI Patient: ROYA CARVAJAL Exam Date: 03/19/2022 : 1945 Gender:F Ordering : DR WALDEMAR WILEY M.D. Admission #: [id number] Family : Order #: [id number] CLICK HERE TO VIEW EXAM RADIOLOGY REPORT [...] Waters M.D. on 03/19/2022 at 15:56 Normal [facility] ECHOCARDIO M/2D COMPLETEon 0 03-18-2022 ECHOCARDIO M/2D COMPLETE Patient: ROYA CARVAJAL Exam Date: 03/18/2022 : 1945 Gender:F Ordering : DR WALDEMAR WILEY M.D. Admission #: [id number] Family : Order #: [id number] CLICK HERE TO VIEW EXAM ECHOCARDIOGRAM REPORT [...] Area(A4C): 15.20 cm2 Left Atrium Systolic Volume(A2C): 53951 mm3 Left Atrium Systolic Volume(A4C): 94812 mm3 Mitral Valve MV E to A [...] M.D. on 03/18/2022 at 16:09 Normal [facility] PROF 14(COMP METB)on 022 Albumin [Mass/Vol] 3.5 g/dL Normal 3.4-5.0 [facility] Comment on above: Performed By: #### C MP #### [facility] [address] [place] [address] Dr. Silvestre Caicedo Albumin/Globulin [Mass ratio] 1.0 {ratio} Normal [facility] Comment on above: Performed By: #### C MP #### [facility] [address] [place] [address] Dr. Silvestre Caicedo ALP [Catalytic activity/Vol] 97 U/L Normal 46-116 [facility] Comment on above: Performed By: #### C MP #### [facility] [address] [place] [address] Dr. Silvestre Caicedo ALT [Catalytic activity/Vol] 23 U/L Normal 14-59 [facility] Comment on above: Performed By: #### C MP #### [facility] [address] [place] [address] Dr. Silvestre Caicedo Anion gap [Moles/Vol] 10.2 mmol/L Normal [facility] Comment on above: Performed By: #### C MP #### [facility] [address] [place] [address] Dr. Silvestre Caicedo AST [Catalytic activity/Vol] 20 U/L Normal 15-37 [facility] Comment on above: Performed By: #### C MP #### [facility] [address] [place] [address] Dr. Silvestre Caicedo Bilirubin [Mass/Vol] 0.6 mg/dL Normal 0.2-1.0 [facility] Comment on above: Performed By: #### C MP #### [facility] [address] [place] [address] Dr. Silvestre Caicedo Calcium [Mass/Vol] 9.6 mg/dL Normal 8.5-10.1 [facility] Comment on above: Performed By: #### C MP #### [facility] [address] [place] [address] Dr. Silvestre Caicedo Chloride [Moles/Vol] 101 mmol/L Normal 98-107 [facility] Comment on above: Performed By: #### C MP #### [facility] [address] [place] [address] Dr. Silvestre Caicedo CO2 [Moles/Vol] 30.1 mmol/L Normal 21.0-32.0 [facility] Comment on above: Performed By: #### C MP #### [facility] [address] [address] [address] Silvestre Caicedo Creatinine [Mass/Vol] 0.75 mg/dL Normal 0.55-1.02 [facility] Comment on above: Performed By: #### C MP #### [facility] [address] [address] [address] Silvestre Caicedo EGFR-AF SAMOAN >60 Normal >=60 [facility] Comment on above: Performed By: #### C MP #### [facility] [address] [address] [address] Silvestre Caicedo EGFR-NON AF SAMOAN >60 Normal >=60 [facility] Comment on above: Performed By: #### C MP #### [facility] [address] [place] [address] Dr. Silvestre Caicedo Globulin (S) [Mass/Vol] 3.6 g/dL Normal [facility] Comment on above: Performed By: #### C MP #### [facility] [address] [place] [address] Dr. Silvestre Caicedo Glucose [Mass/Vol] 102 mg/dL Normal 74-106 [facility] Comment on above: Performed By: #### C MP #### [facility] [address] [place] [address] Dr. Silvestre Caicedo Potassium [Moles/Vol] 4.3 mmol/L Normal 3.5-5.1 [facility] Comment on above: Performed By: #### C MP #### [facility] [address] [place] [address] Dr. Silvestre Caicedo Protein [Mass/Vol] 7.1 g/dL Normal 6.4-8.2 [facility] Comment on above: Performed By: #### C MP #### [facility] [address] [place] [address] Dr. Silvestre Caicedo Sodium [Moles/Vol] 137 mmol/L Normal 136-145 [facility] Comment on above: Performed By: #### C MP #### [facility] [address] [address] [address] Silvestre Caicedo Urea nitrogen [Mass/Vol] 15.0 mg/dL Normal 7.0-18.0 [facility] Comment on above: Performed By: #### C MP #### [facility] [address] [address] [address] Silvestre Caicedo Urea nitrogen/Creatini ne [Mass ratio] 20.0 mg/mg Normal [facility] Comment on above: Performed By: #### C MP #### [facility] [address] [address] [address] Silvestre Caicedo Cult,Urineon 06-09-2017 Cult,Urine Specimen Description .CLEAN CATCH URINESpecial Requests NOT REPORTEDCulture ESCHERICHIA COLI >[id number] CFU/MLReport Status FINAL 06/09/2017SUSCEPTIBILITYOrga nism ECMethod MICAmikacin [...] a <=20 SUSCEPTIBLEPiperacillin/Tazo bactam <=4 SUSCEPTIBLE Normal [facility] Comment on above: Performed By: #### C GIOVANNI, BMP ####[employer] [place], [place] [address] Discharge Summaryon 06-09-20 17 HIM IP Note OR Sample Sawyer Normal [facility] UA w/Reflex Cultureon 2016 Comment Culture ordered base d on defined criteria. Normal [facility] Comment on above: Result Comment: [employer] [address] [place], [place] [id number] [phone] Performed By: #### C GIOVANNI, BMP ####[employer] [address] [place] [address] Acetaminophen mass conc Negative Normal NEG [facility] Comment on above: Performed By: #### C BC, BMP ####[facility] [address] [place] [address] Bilirubin (direct) Negative Normal NEG [facility] Comment on above: Performed By: #### C BC, BMP ####[facility] [address] [address] Hemoglobin mass conc (Bld) LARGE Abnormal NEG [facility] Comment on above: Performed By: #### C BC, BMP ####[address] [address] Nitrite,Ur Negative Normal NEG [facility] Comment on above: Performed By: #### C BC, BMP ####[address] [address] Turbidity CLOUDY Abnormal CLEAR [facility] Comment on above: Performed By: #### C BC, BMP ####[facility] [address] [address] Urine, color RED Abnormal YEL [facility] Comment on above: Result Comment: INTE RPRET WITH CAUTION DUE TO INTENSE COLOR OF URINE. Performed By: #### C BC, BMP ####[facility] [address] [place] [address] Urine, glucose presence Negative Normal NEG [facility] Comment on above: Performed By: #### C BC, BMP ####[address] [address] Urine, leukocyte esterase presence LARGE Abnormal NEG [facility] Comment on above: Performed By: #### C BC, BMP ####[address] [address] Urine, pH [pH] High 5.0-8.0 [facility] Comment on above: Performed By: #### C BC, BMP ####[address] [address] Urine, protein presence 2+ Abnormal NEG [facility] Comment on above: Performed By: #### C BC, BMP ####[address] [address] Urine, specific gravity 1.007 Normal 1.005-1.030 [facility] Comment on above: Performed By: #### C BC, BMP ####[address] [address] Urobilinogen,Ur Normal Normal NORM [facility] Comment on above: Performed By: #### C BC, BMP ####[address] [address] Urinalysis,Microon 7 ----- Normal [facility] Comment on above: Performed By: #### C BC, BMP ####[address] [address] Urine WBC's 10 TO 20 Normal 0-5 [facility] Comment on above: Performed By: #### C BC, BMP ####[address] [address] Urine, bacteria in sediment FEW Abnormal NONE [facility] Comment on above: Result Comment: [address] [address] Performed By: #### C BC, BMP ####[address] [address] Urine, epithelial cells in sediment 2 TO 5 Normal 0-5 [facility] Comment on above: Performed By: #### C BC, BMP ####[address] [place] [address] Urine, erythrocytes 20 TO 50 Normal 0-2 [facility] Comment on above: Performed By: #### C BC, BMP ####[facility] [address] [place] [address] Epithelial, Renal NOT REPORTED Normal 0 [facility] Comment on above: Performed By: #### C BC, BMP ####[facility] [address] [place] [address] Mucus Strands NOT REPORTED Normal NONE [facility] Comment on above: Performed By: #### C BC, BMP ####[facility] [address] [address] Other Observations NOT REPORTED Normal NREQ [facility] Comment on above: Performed By: #### C BC, BMP ####[address] [address] Trichomonas NOT REPORTED Normal NONE [facility] Comment on above: Performed By: #### C BC, BMP ####[facility] [address] [place] [address] Urine, amorphous sediment presence in sediment NOT REPORTED Normal NONE [facility] Comment on above: Performed By: #### C BC, BMP ####[facility] [address] [place] [address] Urine, casts in sediment NOT REPORTED Normal 0-2 [facility] Comment on above: Performed By: #### C BC, BMP ####[facility] [address] [place] [address] Urine, crystals in sediment NOT REPORTED Normal NONE [facility] Comment on above: Performed By: #### C BC, BMP ####[facility] [address] [place] [address] Urine, yeast presence in sediment NOT REPORTED Normal NONE [facility] Comment on above: Performed By: #### C BC, BMP ####[facility]zakusG[address]vfgu[address] [place] [address] Basic Metabolic Profon 06-06 (cont.) Normal [facility] Comment on above: Result Comment: Aver age GFR for 70 or more years old: 75 mL/min/1.73sq mChronic Kidney Disease: <60 mL/min/1.73sq mKidney failure: <15 mL/min/1.73sq meGFR calculated using average adult body mass. Additional eGFR calculator available at:http://[email or web address]_[email or web address] [address] [place] [address] Performed By: #### C BC, BMP ####[address] [address] Anion gap 11 mmol/L Normal 9-17 [facility] Comment on above: Performed By: #### C BC, BMP ####[facility]zakusP[address]iosx[address] [place] [address] Calcium 8.8 mg/dL Normal 8.6-10.4 [facility] Comment on above: Performed By: #### C BC, BMP ####[address] [address] Chloride 102 mmol/L Normal 98-107 [facility] Comment on above: Performed By: #### C BC, BMP ####[facility]zakusPl[address]fjrnky[address] [place] [address] CO2 22 mmol/L Normal 20-31 [facility] Comment on above: Performed By: #### C BC, BMP ####[facility]akusGnqiwgrbwngf[address] [place] [address] Creatinine 0.38 mg/dL Low 0.50-0.90 [facility] Comment on above: Performed By: #### C BC, BMP ####[facility] [address] [place] [address] eGFR (non-black) mL/min/{1.73_m2} Normal >60 [facility] Comment on above: Performed By: #### C BC, BMP ####[facility] [address] [place] [address] Glucose mass conc 161 mg/dL High 70-99 [facility] Comment on above: Performed By: #### C BC, BMP ####[facility] [address] [place] [address] Potassium molar conc 3.9 mmol/L Normal 3.7-5.3 [facility] Comment on above: Performed By: #### C BC, BMP ####[facility] [place] [address] Sodium 135 mmol/L Normal 135-144 [facility] Comment on above: Performed By: #### C BC, BMP ####[facility] [address] [place] [address] Urea nitrogen 13 mg/dL Normal 8- [facility] Comment on above: Performed By: #### C BC, BMP ####[facility] [address] [place] [address] BUN/CRE Ratio NOT REPORTED Normal 9- [facility] Comment on above: Performed By: #### C BC, BMP ####[facility] [address] [place] [address] Staging: NOT REPORTED Normal [facility] Comment on above: Performed By: #### C BC, BMP ####[facility] [address] [place] [address] CBCon 06-06-2017 Erythrocyte distribution width Auto Ratio (RBC) 14.4 % Normal 12.5-15.4 [facility] Comment on above: Performed By: #### C BC, BMP ####[facility] [place] [address] Erythrocytes (RBC) 4.18 10*6/uL Normal 4.0-5.2 [facility] Comment on above: Performed By: #### C BC, BMP ####[facility] [place] [address] Hematocrit (HCT) 35.3 % Low 36-46 [facility] Comment on above: Performed By: #### C BC, BMP ####[address] [address] Hemoglobin mass conc (Bld) 11.8 g/dL Low 12.0-16.0 [facility] Comment on above: Performed By: #### C BC, BMP ####[address] [address] MCH 28.2 pg Normal 26-34 [facility] Comment on above: Performed By: #### C BC, BMP ####[address] [address] MCHC mass conc (RBC) 33.3 g/dL Normal 31-37 [facility] Comment on above: Performed By: #### C BC, BMP ####[address] [address] MCV 84.7 fL Normal 80-100 [facility] Comment on above: Performed By: #### C BC, BMP ####[facility] [place] [address] Platelet mean volume (PMV) 9.2 fL Normal 6.0-12.0 [facility] Comment on above: Result Comment: [address] [address] Performed By: #### C BC, BMP ####[facility] [place] [address] Platelets 198 10*3/uL Normal 140-450 [facility] Comment on above: Performed By: #### C GIOVANNI, BMP ####[facility] [address] [place] [address] WBC (Leukocytes) 12.6 10*3/uL High 3.5-11.0 [facility] Comment on above: Performed By: #### C GIOVANNI, BMP ####[facility] [address] [place] [address] CTA NECK W CONTRASTon 2016 CTA NECK [...] by:LOI Ruthigned by:Marcel Siegel MD06/06/17Final result Normal [facility] CT ABDOMEN PELVIS W IV CONTR [...] by:LOI Villarealigned by:Jamaal Nielsen MD06/05/17Final result Normal [facility] CT LUMBAR SPINE WO CONTRASTo n [...] by:LOI Villarealigned by:Jamaal Nielsen MD06/05/17Final result Normal [facility] CT THORACIC SPINE WO CONTRAS Ton [...] by:LOI Villarealigned by:Jamaal Nielsen MD06/05/17Final result Normal [facility] XR CERVICAL SPINE LIMITEDon 06-05-2017 XR [...] by:LOI Villarealigned by:Jamaal Nielsen MD06/05/17Final result Normal [facility] Basic Metabolic Profon 06-04 (cont.) Normal [facility] Comment on above: Result Comment: Aver age GFR for 70 or more years old: 75 mL/min/1.73sq mChronic Kidney Disease: <60 mL/min/1.73sq mKidney failure: <15 mL/min/1.73sq meGFR calculated using average adult body mass. Additional eGFR calculator available at:http://[email or web address]. Mary Medical [facility] [address] [place], [place] [id number] ([phone] Performed By: #### C BC, BMP ####[address] [place] [address] Anion gap 15 mmol/L Normal 9-17 [facility] Comment on above: Performed By: #### C BC, BMP ####[facility] [address] [place] [address] Calcium 9.4 mg/dL Normal 8.6-10.4 [facility] Comment on above: Performed By: #### C BC, BMP ####[facility] [address] [place] [address] Chloride 99 mmol/L Normal 98-107 [facility] Comment on above: Performed By: #### C BC, BMP ####[facility] [address] [place] [address] CO2 22 mmol/L Normal 20-31 [facility] Comment on above: Performed By: #### C GIOVANNI, BMP ####[facility] [address]99[address] [place] [address] Creatinine 0.62 mg/dL Normal 0.50-0.90 [facility] Comment on above: Performed By: #### C BC, BMP ####[facility] [address]10[address] [place] [address] eGFR (non-black) mL/min/{1.73_m2} Normal >60 [facility] Comment on above: Performed By: #### C BC, BMP ####[facility] [address]fr[address]26[address] [place] [address] Glucose mass conc 149 mg/dL High 70-99 [facility] Comment on above: Performed By: #### C BC, BMP ####[facility] [address]wk[address] [place] [address] Potassium molar conc 4.3 mmol/L Normal 3.7-5.3 [facility] Comment on above: Performed By: #### C BC, BMP ####[facility] [address] [place] [address] Sodium 136 mmol/L Normal 135-144 [facility] Comment on above: Performed By: #### C BC, BMP ####[facility] [address]fecil[address] [place] [address] Urea nitrogen 18 mg/dL Normal 8-23 [facility] Comment on above: Performed By: #### C BC, BMP ####[facility] [address] [place] [address] BUN/CRE Ratio NOT REPORTED Normal 9-20 [facility] Comment on above: Performed By: #### C GIOVANNI, BMP ####[facility] [address]Gqf[address]331 [place] [address] Staging: NOT REPORTED Normal [facility] Comment on above: Performed By: #### C GIOVANNI, BMP ####[facility] [address] [place] [address] CBCon 06-04-2017 Erythrocyte distribution width Auto Ratio (RBC) 15.3 % Normal 12.5-15.4 [facility] Comment on above: Performed By: #### C GIOVANNI, BMP ####[facility] [address]ongAuhluafkgfvt2679 [place] [address] Erythrocytes (RBC) 4.69 10*6/uL Normal 4.0-5.2 [facility] Comment on above: Performed By: #### C BC, BMP ####[facility] [address]Gtp[address]ovfd[address]378 [place] [address] Hematocrit (HCT) 40.2 % Normal 36-46 [facility] Comment on above: Performed By: #### C BC, BMP ####[facility] [address]Qyjtlimfqvql3469 [place] [address] Hemoglobin mass conc (Bld) 12.9 g/dL Normal 12.0-16.0 [facility] Comment on above: Performed By: #### C GIOVANNI, BMP ####[facility] [address] [place] [address] MCH 27.6 pg Normal 26-34 [facility] Comment on above: Performed By: #### C BC, BMP ####[facility] [place] [address] MCHC mass conc (RBC) 32.2 g/dL Normal 31-37 [facility] Comment on above: Performed By: #### C GIOVANNI, BMP ####[facility] [place] [address] MCV 85.7 fL Normal 80-100 [facility] Comment on above: Performed By: #### C GIOVANNI, BMP ####[address] [address] Platelet mean volume (PMV) 8.1 fL Normal 6.0-12.0 [facility] Comment on above: Result Comment: [facility] [address] [place] [address] Performed By: #### C GIOVANNI, BMP ####[facility] [place] [address] Platelets 217 10*3/uL Normal 140-450 [facility] Comment on above: Performed By: #### C GIOVANNI, BMP ####[facility] [place] [address] WBC (Leukocytes) 13.7 10*3/uL High 3.5-11.0 [facility] Comment on above: Performed By: #### C GIOVANNI, BMP ####[facility] [place] [address] ED Noteon 06-04-2017 HIM IP Note OR Sample Sawyer Normal [facility] HIM IP Note OR Sample Sawyer Normal [facility] HIM IP Note OR Sample Sawyer Normal [facility] HIM IP Note OR Sample Sawyer Normal [facility] HIM IP Note OR Sample Sawyer Normal [facility] HIM IP Note OR Sample Sawyer Normal [facility] HIM IP Note OR Sample Sawyer Normal [facility] ED Provider Noteon 7 HIM IP Note OR Sample Sawyer Normal [facility] History and Physicalon 06-04 HIM IP Note OR Sample Sawyer Normal [facility] MRI CERVICAL SPINE WO CONTRA STon [...] by:LOI Carlosigned by:Jacob Garcia MD06/04/17Final result Normal [facility] MRSA, DNA, Nasalon 7 MRSA, DNA, Nasal NEGATIVE: MRSA DNA n ot detected by nucleic acid amplification. Normal [facility] Comment on above: Result Comment: Resu lts should be used as an adjunct to nosocomial control efforts to identify patients needing enhanced precautions.The test is not intended to identify patients with staphylococcal infections. Results should not be used to guide or monitor treatment for MRSA infections.[facility] [address] [place], [place] [address] ([phone] Performed By: #### C BC, BMP ####[facility] [place] [address] Specimen Description .NASAL SWAB Normal [facility] Comment on above: Performed By: #### C BC, BMP ####[facility] [place] [address] Vital Signs Date Time Vital Sign Value Performing Clinician Facility 01-11-2023 09:30-0400 Body height 157.48 cm Jeannette Alves Other [facility] Other 01-11-2023 09:30-0400 Body mass index (BMI) [Ratio] 24.32 kg/m2 Jeannette Alves Other [facility] Other 01-11-2023 09:30-0400 Body weight 60.33 kg Jeannette Alves Other [facility] Other 01-11-2023 09:30-0400 Diastolic blood pressure 92 mm[Hg] Jeannette Alves Other [facility] Other 01-11-2023 09:30-0400 SaO2% (BldA) [Mass fraction] 99 % Jeannette Alves Other [facility] Other 01-11-2023 09:30-0400 Systolic blood pressure 152 mm[Hg] Jeannette Alves Other [facility] Other Encounters Encounter Date Encounter Type Care Provider Facility Start: 10-04-2023 End: 10-04-2023 ambulatory Jeannette Alves Other [facility] Other Start: 10-04-2023 Telephone encounter Jeannette Alves [facility] Start: 04-14-2023 End: 04-14-2023 ambulatory Omero Gunderson Other [facility] Other Start: 04-14-2023 Telephone encounter Omero Gunderson [facility] Start: 04-01-2023 End: 04-01-2023 ambulatory Jeannette Alves Other [facility] Other Start: 04-01-2023 Telephone encounter Jeannette Alves [facility] Start: 01-12-2023 End: 01-13-[address] JEANNETTE ALVES Facility:[facility] Start: 01-11-2023 End: 01-11-2023 ambulatory Jeannette Alves Other [facility] Other Start: 01-11-2023 Patient encounter procedure Jeannette Alves [facility] Start: 04-04-2022 End: 04-05-[address] WALDEMAR WILEY Facility:[facility] Start: 03-19-2022 End: 03-20-[address] WALDEMAR WILEY Facility:[facility] Start: 03-18-2022 End: 03-19-[address] JEANNETTE ALVES Facility:[facility] Start: 03-13-2022 End: 03-14-[address] WALDEMAR WILEY Facility:[facility] Start: 03-29-2020 Adult health examination Omero Gunderson Other [facility] Other Start: 06-04-2017 End: 06-09-2017 Evaluation and management of inpatient SHERYL NEGRON [facility] Procedures Date Procedure Procedure Detail Performing Clinician Start: 01-25-2019 Screening for malign ant neoplasm of colon Omero Gunderson Other Start: 01-25-2019 Screening mammography Bert Alves Other Start: 06-09-2017 PULSE OXIMETRY, CONTINUOUS SHERYL SPE Start: 06-09-2017 DISCHARGE PATIENT STEVE GEE Start: 06-09-2017 PULSE OXIMETRY, CONTINUOUS SHERYL [...] SHERYL NEGRON Start: 06-05-2017 POC GLUCOSE FINGERSTICK HSERYL NEGRON Start: 06-05-2017 PULSE OXIMETRY, CONTINUOUS SHERYL [...] AL VTE PROPHYLAXIS SHERYL LANGALEXANDER Start: 06-04-2017 DISTANCE EDUCATION COORDINATOR EVAL AND TREAT NEIDA NEGRON Start: 06-04-2017 [...] - Documentation Purposes Only Jeannette Alves Other [facility] Other 10-12-2020 COVID-19 Vaccine Pfi zer - Documentation Purposes Only Jeannette Alves Other [facility] Other 07-19-2020 influenza virus vacc ine, split virus (incl. purified surface antigen) Omero Gunderson Other [facility] Other 07-13-2018 influenza virus vacc ine, split virus (incl. purified surface antigen) Omero Neptali Other [facility] Other 07-22-2015 pneumococcal conjuga te vaccine, 13 valent Omero Gunderson Other [facility] Other 06-07-2014 tetanus and diphther ia toxoids, adsorbed, preservative free, for adult use (5 Lf of tetanus toxoid and 2 Lf of diphtheria toxoid) Omero Gunderson Other [facility] Other 06-01-2013 meningococcal oligosaccharide (groups A, C, Y and W-135) diphtheria toxoid conjugate vaccine (MCV4O) Omero Neptali Other [facility] Other 06-01-2013 pneumococcal Conjuga te, unspecified formulation; Translations: [Need for prophylactic vaccination against Streptococcus pneumoniae (pneumococcus)] Jeannette Alves Other [facility] Other 06-01-2013 pneumococcal polysaccharide vaccine, 23 valent Omero Gunderson Other [facility] Other 06-24-2012 tetanus and diphther ia toxoids, adsorbed, preservative free, for adult use (5 Lf of tetanus toxoid and 2 Lf of diphtheria toxoid) Omero Gunderson Other [facility] Other Payers Date Payer Category Payer Unknown [id number] 1958 Medicare [id number] 2.1 [id number] 1958 Unknown [id number] 1945 Unknown [id number] 2.16.84 [id number] 1945 Unknown [id number] 2.16.84 [id number] 1945 Unknown [id number] 2.16.84 [id number] 1945 Unknown [id number] 2.16.84 [id number] 1945 Unknown [id number] 2.16.84 [id number] Unknown [id number] Social History Date Type Detail Facility Unknown if ever smoked [facility] Other Sex Assigned At Sex Assigned At Bir th [facility] Other Evaluation note 04-14-2023 Note Date & Type Note Facility 04-14-2023 Evaluation note Encounter Date Diagnosis Assessment Notes Apr, Essential hypertension (ICD-10 - I10) [facility] Other Evaluation note 01-11-2023 Note Date & [...] is debating if she needs to see [facility] Cardio on a yearly basis. [facility] Other Evaluation note Note Date & Type Note Facility Evaluation note No Information [facility] Other History general Narrative - Reported Note Date & Type Note Facility History general Narrative - Reported Type Medical History Essential hypertension Medical History Left lumbar pain Medical History Hypercalcemia Surgical History BTL Hospitalization History SEE SURGICAL HX [facility] Other Summary Purpose Family History No Family History Records FoundNo Family History Records Found Advance Directives No Advanced Directives Records FoundNo Advanced Directives Records Found Additional Source Comments INFORMATION SOURCE (unrecogn ized section and content) DATE CREATED AUTHOR 03/09/2018 [facility] DATE CREATED AUTHOR AUTHOR'S ORGANIZ ATION 01/20/2023 [facility] REASON FOR VISIT (unrecogniz ed [...] BE BASED ON THE PRIMARY CLINICAL RECORDS. [employer] provides no warranty or guarantee of the accuracy or completeness of information in this document.
[2025-01-29 10:00] LABS: Anion Gap 12.2; BUN Creatinine Ratio 22.9; Calcium 9.8 mg/dL (8.5-10.1); Carbon Dioxide 30.1 mmol/L (21.0-32.0); Chloride 105 mmol/L (98-107); Estimated GFR (African America >60 (>=60 mL/min/1.73m^2); Estimated GFR (Non-African Ame >60 (>=60 mL/min/1.73m^2); Glucose 105 mg/dL (74-106); Potassium 4.3 mmol/L (3.5-5.1); Sodium 143 mmol/L (136-145)
[2025-01-29 10:04] LABS: Creatinine Urine Random 116.02 mg/dL (20.00-300.00); Microalbum Creatinine Ratio Ur 11.2 mg/g (0.0-29.9); Microalbumin Urine Random <1.3 mg/dL (<=30.0)
== END 2025-01-29 09:10 | disposition home or self-care (01) ==
LOC: LAB 09:11
PROVIDERS: PCP Family Medicine; Visit Provider Family Medicine
DX: I10 Essential (primary) hypertension (principal)
CPT/HCPCS: 36415; 80048; 82043; 82570

== ENCOUNTER 2025-02-06 09:59 | Outpatient (OUT) | payer MEDICARE, OTHER, SELFPAY ==
--- NOTE | 2025-02-06 10:01 | MM_ITS ---
Patient Name: ROYA CARVAJAL MR#: [id number] : 1945 Exam Date: 02/06/2025 Ordering Doctor: DR YAMILKA ALVES M.D. RADIOLOGY REPORT PROCEDURE: MM TOMOSYNTHESIS SCREENING BI COMPARISON: MM TOMOSYNTHESIS SCREENING BI, 02/02/2024. MG MAMM SCREEN DARRIUS W CAD, 04/05/2020. MG MAMM SCREEN DARRIUS W CAD, 01/31/2019. MG MAMM DARRIUS SCRN W CAD DIG, 05/25/2013. INDICATIONS: Screening Calculator Name NCI Breast Cancer Risk Assessment Tool 5 Year Breast Cancer Risk 3.20% Lifetime Breast Cancer Risk 5.70% Personal Breast Cancer No Personal Ovarian Cancer No Treatments None Family Cancers Daughter with breast cancer at age 42; Sister with colon cancer at age 67. LOCATION: [facility] BREAST COMPOSITION: There are scattered areas of fibroglandular density. FINDINGS: RIGHT BREAST: No significant suspicious finding. LEFT BREAST: No significant suspicious finding. DIAGNOSTIC CATEGORY 1--NEGATIVE. RECOMMENDATIONS: ROUTINE MAMMOGRAM AND CLINICAL EVALUATION IN 12 MONTHS. PLEASE NOTE: A NORMAL MAMMOGRAM DOES NOT EXCLUDE THE POSSIBILITY OF BREAST CANCER. A CLINICALLY SUSPICIOUS PALPABLE LUMP SHOULD BE BIOPSIED. Dictated by: Nader Pope DO on 02/06/2025 at 11:00 Approved by: Nader Pope DO on 02/06/2025 at 11:04
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
--- OUTSIDE RECORDS SUMMARY | 2025-02-06 10:01 | XMS_ITS | Clinical Summary ---
Author Organization [facility] Address [facility] [id number] [address] [place] [address] Care Team Providers Care Coat Fitter Name Role Phone Jeannette Dumont MD Primary Care Provider [phone] Allergies No known active allergies Medications sodium chloride (AYR SALINE) 0.65 % nasal spray Administer 1 spray into each nostril as needed for congestion (1 SPRAY EACH NOSTRIL). Active loratadine (CLARITIN) 10 mg tablet Take 10 mg by mouth daily. Active losartan (COZAAR) 50 mg tablet Take 50 mg by mouth daily. Active oxyCODONE (ROXICODONE) 5 mg immediate release tablet Take 5 mg by mouth every 4 (four) hours as needed for pain. Active senna (SENOKOT) 8.6 mg tablet Take 8.6 mg by mouth 2 (two) times a day. Active acetaminophen (TYLENOL EXTRA STRENGTH) 500 mg tablet Take 1,000 mg by mouth 3 (three) times a day as needed for pain. Active calcium carbonate-vitam in D3 (CALCIUM 600 + D,3,) 600 mg calcium- 200 unit capsule Take 2 tablets by mouth daily. Active aspirin 81 mg chewable tablet Chew 81 mg and swallow daily. ASA 81MG PO DAILY. ORDER RECEIVED FROM [facility]. CESIA ANGEL 7 Active docusate sodium (COLACE) 100 mg capsule Take 100 mg by mouth daily as needed. COLACE 100MG PO DAILY PRN FOR CONSTIPATION ORDER RECEIVED FROM [facility]. CESIA ANGEL 7 Active Social History Tobacco Use Types Packs/Day Years Used Date Smoking Tobacco: Never Assessed Childcare Answer Date Recorded Childcare Unknown 02/23/2019 Employment Answer Date Recorded Employment Unknown 02/23/2019 Purpose - Life Answer Date Recorded Purpose and direction in life Unknown Comments Unknown Sex and Gender Information Value Date Recorded Sex Assigned at Not on file Legal Sex Female 5:32 PM EDT Gender Identity Not on file Sexual Orientation Not on file Last Filed Vital Signs Vital Sign Reading Time Taken Comments Blood Pressure 129/84 07/09/2017 10:55 AM EDT Pulse 89 07/09/2017 10:55 AM EDT Temperature 36.7 C (98.1 F) 07/09/2017 10:55 AM EDT Respiratory Rate 18 07/09/2017 10:55 AM EDT Oxygen Saturation - - Inhaled Oxygen Concentration - - Weight 63.5 kg (140 lb) 06/24/2017 11:50 AM EDT Height 162.6 cm (5' 4 ) 06/24/2017 11:50 AM EDT Body Mass Index 24.03 06/24/2017 11:50 AM EDT Plan of Treatment Not on file Medical Devices Not on file Insurance MEDICARE COMMERCIAL Care Teams Coat Fitter Relationship Specialty Start Date End Date Jeannette Dumont MD [address] [place] [address] PCP - General 06/21/17
--- OUTSIDE RECORDS SUMMARY | 2025-02-06 10:01 | XMS_ITS | Clinical Summary ---
Author Organization [facility] Address [address] [place] [address] Care Team Providers Care Cad Engineer Name Role Phone Unavailable Primary Care Provider Unavailabl e Social History Tobacco Use Types Packs/Day Years Used Date Smoking Tobacco: Never Assessed Comments Unknown Sex and Gender Information Value Date Recorded Sex Assigned at Not on file Legal Sex Female 6:56 PM EDT Gender Identity Not on file Sexual Orientation Not on file Plan of Treatment Not on file
--- OUTSIDE RECORDS SUMMARY | 2025-02-06 10:01 | XMS_ITS | Referral Summary ---
Author Organization [facility] Address [address] [place] [address] Care Team Providers Care Cloth Folder Hand Name Role Phone Unavailable Primary Care Provider [...] 04/06/2022 9:01 AM EDT Plan of Treatment Not on file
--- OUTSIDE RECORDS SUMMARY | 2025-02-06 10:01 | XMS_ITS ---
Author Organization [facility] Care Team Providers Care Artifacts Conservator Name Role Phone RACHEL TALHA Unavailable Unavailable Allergies and adverse reactions No Known Allergies Care Team Name Role Address Phone Organization Dates TALHA BALL PCP [place] (Office): [facility] 06/09/2017 - 06/23/2017 Mental Status Section Date Assessment Total Score Description 06/23/2017 BIMS 15 cognitively int act CAM 0 No delirium ind icated PHQ-9 12 moderate depres karen 06/16/2017 BIMS 15 cognitively int act CAM 0 No delirium ind icated PHQ-9 12 moderate depres karen Problems Problem # Description Date of onset Resolved Date Code CodeSystem Concern Status 1 MUSCLE WEAKNESS (GENERALIZED) 06/09/[address] active Reason for Referral No Reasons for Referral Entered Social History Social History Observation Description Start Date End Date Code Code System Current Smoking Status Tobacco smoking consumption unknown 171293414 SNOMED CT Sex Assigned At Female 1945 40869-2 [facility] Gender Identity Vital Signs Code Code System Vitals Name Values and Units Timing Information 9279-1 INC Respiratory Rate Value=18.0 Units=/m in 06/23/2017 36113-4 LOINC O2 % BldC Oximetry Value=96.0 Units= % 06/23/2017 12732-2 LOINC Pain Level Value=0.0 06/23/2017 8462-4 [facility] Blood Pressure-Diastolic Value=89 Un its=mmHg 06/23/2017 8480-6 [facility] Blood Pressure-Systolic Barxr=017 Un its=mmHg 06/23/2017 8310-5 [facility] Body Temperature Value=97.2 Units= F 06/23/2017 8867-4 [facility] Heart rate Value=77.0 Units=/min 07/2017 78789-8 [facility] Weight Vubsg=515.7 Units=Lbs 02/2017 8302-2 [facility] Height Value=64.0 Units=Inches 06/14/2017
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
== END 2025-02-06 10:00 | disposition home or self-care (01) ==
LOC: MAMMO 09:59
PROVIDERS: PCP Family Medicine; Visit Provider Family Medicine
DX: Z00.00 Encounter for general adult medical examination without abnormal findings (principal); Z12.31 Encounter for screening mammogram for malignant neoplasm of breast; I10 Essential (primary) hypertension; Z80.3 Family history of malignant neoplasm of breast; Z80.0 Family history of malignant neoplasm of digestive organs
CPT/HCPCS: 77063; 77067